=== PATIENT | female | born 1960 | race African-American/Black ===

== ENCOUNTER 2017-11-05 06:15 | Inpatient (IN) | payer OTHER ==
[2017-11-03 08:12] VITALS: BMI 35.7
[2017-11-05] MEDS ORDERED: CEFAZOLIN 2 GM/D5W 2 GM/50 ML ML IVPB ONE (06:38)
[2017-11-05] MEDS ORDERED: oxyCODONE HCL 10 MG SUSTAINED ACTING TABLET PO STA (06:38)
[2017-11-05] MEDS ORDERED: oxyCODONE HCL 10 MG SUSTAINED ACTING TABLET ONE (06:41)
[2017-11-05] MEDS ORDERED: THROMBIN (BOVINE) 5,000 UNIT VIAL TP ONE ×2 (07:05→09:18)
[2017-11-05] MEDS ORDERED: GUM MASTIC/STORAX/MSAL/ALCOHOL 1 DRP DROPSBTL MC ONE (07:05)
--- NOTE | 2017-11-05 07:28 | HP ---
History & Physical Update - History History: No Change - Physical Physical: No Change - Assessment Assessment: No Change - Plan Plan: No Change (Initial H&P located in patient's paper chart. No new complaints or medications. LBP x17 years radiating to LLE.)
[2017-11-05] MEDS ORDERED: BUPIVACAINE HCL/PF (5 MG/ML) 30 ML VIAL IJ ONE (07:29)
[2017-11-05] MEDS ORDERED: MIDAZOLAM HCL 2 MG/2 ML SINGLE DOSE VIAL ONE ×3 (07:29→08:59)
[2017-11-05] MEDS ORDERED: LIDOCAINE 1%/EPI 1:100000 (50 ML MULTI DOSE VIAL) INF ONE (09:00)
[2017-11-05] MEDS ORDERED: GELATIN SPONGE,ABSORBABLE 1 GM PACKET TP ONE (09:19)
[2017-11-05] MEDS ORDERED: ONDANSETRON 4 MG/2 ML VIAL IVPUSH PRN ×2 (10:38→10:41)
[2017-11-05] MEDS ORDERED: ACETAMINOPHEN 1000 MG/100 ML VIAL (NON FORMULARY) IVPB PRN (10:38)
[2017-11-05] MEDS ORDERED: oxyCODONE HCL 5 MG TABLET PO PRN ×4 (10:38→10:41)
[2017-11-05] MEDS ORDERED: PROMETHAZINE HCL 25 MG/1 ML VIAL IVPB PRN (10:41)
--- NOTE | 2017-11-05 10:44 | OP ---
Operative Note - Note: Operative Date: 11/05/17 Pre-Operative Diagnosis: L5-S1 Spondylolithesis with radiculopathy Operation: L5-S1 TLIF, allograft implant, neuromonitoring Post-Operative Diagnosis: Same as Pre-op Surgeon: Dileep Armenta Air Saw Operator: James Romeo Anesthesiologist/SKI TOPPER: Abdirashid Mckeon Anesthesia: Spinal Specimens Removed: L5-S1 disc Estimated Blood Loss (mls): 30 Fluid Volume Replaced (mls): 600 Operative Report Dictated: Yes
[2017-11-05] MEDS ORDERED: LACTATED RINGERS SOLUTION 1,000 ML IV SCH (10:45)
--- NOTE | 2017-11-05 10:46 | SURG ---
Surgery Supervisor Production Managing Note Supervisor Production Managing: James Romeo PA-C Date of Service: 11/05/17 Diagnosis: L5-S1 Spondylolithesis with radiculopathy Procedure: L5-S1 Transforaminal lumbosacral interbody fusion / decompression / instrumentation, allograft implant, neuromonitoring I was present for the entirety of the operative procedure. For further detail, please refer to operative report. Visit type - Case Type Case Type: Scheduled - New patient This patient is new to me today: Yes Date on this admission: 11/05/17
[2017-11-05] MEDS ORDERED: ACETAMINOPHEN 1000 MG/100 ML VIAL (NON FORMULARY) IVPB ONE (11:05)
--- NOTE | 2017-11-05 11:31 | OP ---
DATE OF OPERATION: 11/05/2017 PREOPERATIVE DIAGNOSIS: Spinal stenosis, L5-S1. POSTOPERATIVE DIAGNOSIS: Spinal stenosis, L5-S1. PROCEDURE PERFORMED: 1. Revision laminectomy, L5-S1. 2. Transforaminal lumbar interbody fusion, L5-S1. 3. Placement of instrumentation. 4. Placement of prosthetic cage. SURGEON: Dileep Armenta MD VEST BUSHELER: JOSEPHINE Wen ESTIMATED BLOOD LOSS: 50 mL. INTRAVENOUS FLUIDS: Per Anesthesia. ANESTHESIA: Spinal/TLIP. COMPLICATIONS: None. DISPOSITION: Patient brought to the PACU in stable condition. INDICATION FOR SURGERY: Patient is a 57-year-old female who has been suffering from pain from her back down her left leg. X-rays and MRI were completed which showed that she had spinal stenosis at L5-S1. She had previously undergone a laminectomy and developed degenerative disk disease. At this point, I had a thorough discussion with the patient regarding surgery. Surgical options including revision laminectomy versus lumbar fusion. We discussed the risks and benefits in each, and the patient consented to have the fusion. DESCRIPTION OF PROCEDURE: Patient was brought to the operating room by the Anesthesia staff after appropriate patient identification was performed. Spinal anesthesia was given. A TLIP block was also given. The patient was able to position himself prone on to the OR table. With all the areas of bony prominences well padded at this time, the C-arm was brought in. The L5-S1 pedicle was marked off. Ten mL of lidocaine with epinephrine was injected into her back at this time. Her back was prepped and draped in the sterile manner. At this point, a timeout was completed. Incision was made bilaterally over the L5-S1 pedicles. Dissection was carried down to the fascia. The fascia was then split at this time. Under C-arm guidance, trocars were advanced about the L5-S1 pedicles. Through the trocar, a wire was inserted. Over the wire, TAP was performed, and screws were inserted. On the left hand side, retractor blades were set up to expose the L5-S1 facet joint. The facet joint was removed with a bur. The disk was entered using a series of pituitaries, Kerrisons, and curettes, and diskectomy was completed. Endplates were decorticated. At this time, a bone graft was laid down. A cage full of bone graft was laid in. Tulip heads were placed over the screws. A belen was measured and placed in the capsule, and final tightening was performed. On the right hand side, a belen was measured and placed in the capsule, and final tightening was performed. Compression was applied on both sides. AP and lateral x-rays confirmed the instrumentation to be in good position. All extra instrumentation was removed at this time. The fascia was closed with a number 1 Vicryl suture. Subcutaneous tissue was closed with 2-0 Vicryl suture. Skin was closed with 3-0 Monocryl suture. Dermabond was applied. Steri-Strips were applied. Sterile dressing was applied. Patient was placed supine on the OR bed and brought to the PACU in stable condition. Charly HERRON/[id number]
[2017-11-05] MEDS ORDERED: oxyCODONE HCL 5 MG TABLET ONE (14:43)
[2017-11-05] MEDS ORDERED: CEFAZOLIN 1 GM/D5W 2 GM/100 ML BAG ONE (14:43)
[2017-11-05] MEDS ORDERED: CEFAZOLIN 2 GM in DEXTROSE 5%-WATER - 50 ML IVPB ONE (15:00)
[2017-11-05] MEDS ORDERED: ceFAZolin 2 GRAM PREMIX BAG IVPB ONE (15:00)
[2017-11-05 16:34] VITALS: BP 126/74; PULSE 56; TEMP 98.1
[2017-11-05] MEDS ORDERED: diazePAM 2 MG TABLET PO SCH (22:00)
[2017-11-06] MEDS ORDERED: VALSARTAN 160 MG TABLET (UD) PO SCH (10:00)
== END 2017-11-05 16:10 | disposition home or self-care (01) | DRG 460 ==
LOC: FM/S 06:15
PROVIDERS: ADMIT Orthopaedic Surgery Orthopaedic Surgery of the Spine; ATTEND Orthopaedic Surgery Orthopaedic Surgery of the Spine
PROC: 0SG30K1 Fusion of Lumbosacral Joint with Nonautologous Tissue Substitute, Posterior Approach, Posterior Column, Open Approach (ICD-10-PCS; principal; 2017-11-05 08:15)
DX: M48.07 Spinal stenosis, lumbosacral region (principal); M43.17 Spondylolisthesis, lumbosacral region
CPT/HCPCS: 72100-TC-FY; 94760; J0131